=== PATIENT | male | born 1960 | race Caucasian/White ===

== ENCOUNTER 2017-01-20 20:59 | Emergency (ER) | payer SELFPAY ==
[~2017-01-20] VITALS: Ht 182.9 cm; Wt 120.0 kg
[~2017-01-20 20:59] MED LIST: AMBI10TA PO; CLAR10CA3 PO; FLUT50SP EACH NARE; HYDR-3583 PO; MONT10TA4 PO; SOMA350T PO; tumeric
[2017-01-20 21:10] VITALS: BP 124/79; PULSE 98; RESP 18; TEMP 98.1; O2SAT 93
[2017-01-20] MEDS ORDERED: ERYTOIN10 RIGHT EYE (21:39)
--- NOTE | 2017-01-20 21:40 | PD ---
HPI Chief Complaint: Eye Problems/Injury Time Seen by Provider: 21:15 Travel History International Travel<30 days: No Contact w/Intl Traveler<30days: No Traveled to known affect area: No History of Present Illness HPI 56 shoulder male presents emergency department for evaluation of right eye irritation. Patient reports symptom onset 3 days ago when he felt as if he had a foreign body in the right eye. He reports he attempted to irrigate the eye out several times at home but over the last 3 days progressively gotten more irritated. He reports mild pain. 3 at 10 severity. More irritating than pain. He denies visual changes in the eye. PFSH Past Medical History Medical History: Denies Significant Hx Musculoskeletal: Yes (Chronic back pain ) Tetanus Vaccination: < 5 Years Influenza Vaccination: Yes Social History Alcohol Use: Yes (Occ.) Tobacco Use: No Substance Use: No Allergies-Medications (Allergen,Severity, Reaction): Coded Allergies: Penicillin (Verified Allergy, Unknown, Rash, 01/20/17) Reported Meds & Prescriptions Reported Meds & Active Scripts Active Erythromycin Opth Oint 5 Mg/Gm Oint 1 Applic RIGHT EYE QID Ambien (Zolpidem Tartrate) 10 Mg Tab 10 Mg PO HS PRN Reported Claritin (Loratadine) 10 Mg Cap 10 Mg PO DAILY Review of Systems Except as stated in HPI: all other systems reviewed are Neg Physical Exam Narrative GENERAL: [Alert well-appearing male.] SKIN: Focused skin assessment warm/dry. HEAD: Atraumatic. Normocephalic. EYES: Pupils equal and round. No scleral icterus. RIGHT eye: Injected. Corneas clear. Extraocular movements intact and painless. No foreign body visualized. No fluorescein dye uptake. Small internal sty right upper lid. Visual acuity R: 20/25 L: 20/30 B: 20/20. ENT: No nasal bleeding or discharge. Mucous membranes pink and moist. NECK: Trachea midline. No JVD. CARDIOVASCULAR: Regular rate and rhythm. No murmur appreciated. RESPIRATORY: No accessory muscle use. Clear to auscultation. Breath sounds equal bilaterally. NEUROLOGICAL: Awake and alert. No obvious cranial nerve deficits. Motor grossly within normal limits. Normal speech. PSYCHIATRIC: Appropriate mood and affect; insight and judgment normal. Data Data Last Documented VS Vital Signs Date Time Temp Pulse Resp B/P Pulse Ox O2 Delivery O2 Flow Rate FiO2 01/20/17 21:10 98.1 98 18 124/79 93 MDM Medical Decision Making Medical Screen Exam Complete: Yes Emergency Medical Condition: Yes Differential Diagnosis Corneal abrasion, conjunctivitis, stye Narrative Course 56-year-old male with right eye irritation and foreign body sensation 3 days. Physical exam did not reveal foreign body. There is no fluorescein dye uptake. He has normal visual acuity. There is a small sty right upper inner lid. Patient be treated with antibiotic ointment and instructed to follow up with his primary care provider or photographic equipment inspector for recheck in 2 days. Diagnosis Primary Impression: Corneal abrasion Qualified Code: S05.01XA - Corneal abrasion, right, initial encounter Additional Impression: Sty, internal Qualified Code: H00.021 - Hordeolum internum of right upper eyelid Referrals: [employer]ine Service Instructor Trainer Scripts Erythromycin Opth Oint 5 Mg/Gm Oint1 Applic RIGHT EYE QID #1 TUBE Ref 0 Prov:Maxine Hairston 01/20/17 Disposition: 01 DISCHARGE HOME Condition: Stable Maxine Hairston Jan 20, 2017 21:40
== END 2017-01-20 21:45 | disposition home or self-care (01) ==
LOC: PHEFT 20:59
DX: S05.01XA Injury of conjunctiva and corneal abrasion without foreign body, right eye, initial encounter (principal); H00.021 Hordeolum internum right upper eyelid; X58.XXXA Exposure to other specified factors, initial encounter
CPT/HCPCS: 99283